=== PATIENT | female | born 1955 | race Caucasian/White ===

== ENCOUNTER → 2017-11-16 | Day surgery (SDC) | payer BC ==
[2017-11-02 12:04] VITALS: BMI 20.5
[~2017-11-16] MED LIST: ALPRAZolam 0.25 MG TAB PO PRN; ALPRAZolam 0.5 MG TAB PO PRN; ASPIRIN 325 MG TAB PO STA; ATORVASTATIN 80 MG TAB PO STA; BENZOCAINE SPRAY 1 CAN MUCOUS MEM ONE; IOPAMIDOL-370 125ML BTL INJ ONE; IOPAMIDOL-370 50ML BTL INJ ONE; LIDOCAINE 2% INJ 20 MG/ML (20 ML MDV) ONE; LIDOCAINE 2% INJ 20 MG/ML SQ ONE; MIDAZOLAM 2 MG/2 ML VIAL ONE; NITROGLYCERIN SL TABS 0.4 MG TAB SUBLINGUAL PRN; NON-FORMULARY DRUG (Estradiol [Vagifem] 10 MCG) VG SCH; RX INFO: IV CONTRAST WAS GIVEN 1 EACH MISC MISCELLANE PRN; SODIUM CHLORIDE 0.9% 1,000 ML IV ONE; SODIUM CHLORIDE 0.9% 1,000 ML IV SCH; SODIUM CHLORIDE 0.9% 1,000 ML in EMPTY BAG 1 BAG IV ONE; amLODIPine 5 MG TAB PO STA; fentaNYL (PF) 50 MCG/ML 2 ML AMP IVP ONE; fentaNYL (PF) 50 MCG/ML 2 ML AMP ONE; traZODone HCL 50 MG TAB PO SCH
[2017-11-16 08:30] VITALS: RESP 18
[2017-11-16] MEDS: MIDAZOLAM 2 MG/2 ML VIAL IVP ONE ×2 (10:14→10:17)
--- NOTE | 2017-11-16 11:36 | ECHOT ---
TRANSESOPHAGEAL ECHOCARDIOGRAM INDICATION: Mitral regurgitation. PROCEDURE: After explaining the risk and the complication with the patient, her blood pressure, heart rate, O2 saturation was monitored. She received 2 mg intravenous Versed, 50 mcg intravenous fentanyl and her throat was sprayed with Cetacaine. After achieving moderate conscious sedated state, the probe was introduced esophagus without difficulty. Images were obtained Following that, the probe was removed. There was no immediate complication. FINDINGS: Left atrium is dilated. Left atrial appendage is normal. The left ventricular size and systolic function normal. The aortic valve is normal. Tricuspid valve is normal. Pulmonic valve is normal. The mitral valve is thickened and revealed bileaflet severe prolapse with calcification of the chordae. Descending thoracic aorta appears to be normal. Contrast bubble study revealed no shunting across the interatrial septum. There was no pericardial effusion. Doppler pulse wave and color Doppler obtained revealed severe mitral regurgitation with a mild to moderate tricuspid regurgitation. Estimated right ventricular systolic pressure 40 mmHg. Mild aortic and trace pulmonic regurgitation was noted. There was no evidence of shunting across the interatrial septum. CONCLUSION: 1. Dilated left atrium with normal appearance of left atrial appendage. 2. Normal left ventricular size and systolic function. 3. Bileaflet mitral valve prolapse with severe mitral regurgitation. 4. Mild to moderate tricuspid regurgitation with mild pulmonic regurgitation. 5. Mild aortic regurgitation with trace pulmonic regurgitation. 6. Normal appearance of the descending thoracic aorta. 7. There was no shunting across the interatrial septum. MMODL / IJN: [id number] /
[2017-11-16 11:39] LABS: O2 Sat Blood Gas 70.8 %
[2017-11-16 11:42] LABS: O2 Sat Blood Gas 70.6 %
[2017-11-16 11:46] LABS: O2 Sat Blood Gas 95.3 %
--- NOTE | 2017-11-16 12:33 | CC ---
CARDIAC CATHETERIZATION REPORT Mrs. Banegas is a 62-year-old female with history of hypertension, hyperlipidemia, and a history of mitral valve prolapse with significant mitral regurgitation, who has been complaining of progressive fatigue, lack of energy and dyspnea. Because of the progression of her mitral valve disease, recommendation made regarding cardiac catheterization. The procedures, risks and complication were discussed with the patient who is in full understanding and agreement. PROCEDURE: Patient was brought to the [facility] in a fasting semi-sedated state after receiving fentanyl and Benadryl and achieving moderate conscious sedated state. Using Xylocaine anesthesia and the Seldinger technique, a 6-Welsh sheath was introduced in the right femoral artery and an 8-Welsh sheath in the right femoral vein. Right heart catheterization was performed using [place]-Stas catheter, multiple pressure and samples were obtained. Cardiac output by thermodilution was calculated. Following that, selective right and left angiography performed using 6-Welsh 4 bend right and left [place] catheter. Multiple views of the right coronary artery including hemiaxial views were obtained. Following that, catheter and sheaths were removed. Hemostasis was obtained with deployment of Angio-Seal in the right femoral artery and compression of the right femoral vein. FINDINGS: 1. HEMODYNAMICS: Pulmonary artery systolic pressure of 20 with a diastolic 4 and a mean of 10 mmHg. Pulmonary capillary wedge pressure, A-wave of 9, V-wave 10 with a mean of 6 mmHg. Right ventricular systolic pressure 20 mmHg with an end-diastolic of 2. Right atrium A-wave of 3, V-wave of 4 with a mean of 2 mmHg. There was no gradient across the aortic valve. The left ventricular end-diastolic pressure was 8 to 10 mmHg. 2. Cardiac output by thermodilution 4.2 L/minute by Talib 3.30/minute. Right atrial saturation 71%. Pulmonary artery saturation 71%. Femoral artery saturation of 95%. 3. CORONARIES: LEFT MAIN: This is a large-sized vessel, bifurcating into left circumflex, left anterior descending artery, left main coronary artery has no evidence of high-grade stenosis. LEFT ANTERIOR DESCENDING ARTERY: This is a large-sized vessel reaching toward the apex with a wraparound apex segment, giving rise to small diagonal branch. In the proximal segment and a moderately-sized in the mid segment. The left anterior descending artery and its branches have no evidence of obstructive coronary artery disease. 1. LEFT CIRCUMFLEX: This is a dominant vessel, large in caliber, giving rise to a very proximal obtuse marginal branch, almost in the ramus intermedius territory. Distally, bifurcating into PDA, postoperative segment and branches. The left circumflex as well as branches have no evidence of obstructive coronary artery disease. 2. RIGHT CORONARY ARTERY: This is a small nondominant vessel that has no evidence of high-grade stenosis. 3. LEFT VENTRICULOGRAM: Left ventriculogram is performed in 30 degree MARTE view and revealed a normal left ventricular size and systolic function. Ejection fraction 60%. There was a 3+ mitral regurgitation. There was calcification of the mitral valve apparatus. CONCLUSION: 1. Normal coronary arteries. 2. A 3+ mitral regurgitation with preserved systolic function. 3. Normal left ventricular size and systolic function. RECOMMENDATION: At this time, I would recommend to continue present medical regimen. Patient is moving to [place] and she will be evaluated for possible mitral valve repair. Those findings and recommendation were discussed with the patient and she is in full understanding and agreement. DURATION OF THE PROCEDURE: 31 minutes. MMODL / IJN: [id number] /
[2017-11-16 14:00] VITALS: TEMP 98.2
[2017-11-16 14:40] VITALS: PULSE 60
[2017-11-16 17:01] VITALS: BP 147/77
== END | disposition home or self-care (01) ==
LOC: CATHCVL 08:00
PROVIDERS: ATTEND Internal Medicine Interventional Cardiology
DX: I08.1 Rheumatic disorders of both mitral and tricuspid valves (principal); I10 Essential (primary) hypertension; E78.5 Hyperlipidemia, unspecified; E78.00 Pure hypercholesterolemia, unspecified; Z79.890 Hormone replacement therapy; Z79.899 Other long term (current) drug therapy; Z88.2 Allergy status to sulfonamides
CPT/HCPCS: 93312; 93320; 93325; 93460; 85018; 82810; C1760; C1894 ×2; C1769; J2001; J2250; J3010; Q9967 ×2